=== PATIENT | female | born 1975 ===

== ENCOUNTER 2017-09-19 18:59 | Emergency (ER) | payer OTHER ==
[~2017-09-19] VITALS: Ht 160 cm; Wt 83.0 kg
[~2017-09-19 18:59] MED LIST: CELEBREX100 MG PO; SKELAXIN800 MG PO
== END 2017-09-19 22:24 | disposition home or self-care (01) ==
LOC: ER 18:59
DX: K29.70 Gastritis, unspecified, without bleeding (principal)

== ENCOUNTER 2021-11-07 17:43 | Emergency (ER) | payer OTHER ==
[~2021-11-07] VITALS: Ht 167.6 cm; Wt 87.5 kg
== END 2021-11-07 21:42 | disposition home or self-care (01) ==
LOC: ER 17:43
DX: K46.9 Unspecified abdominal hernia without obstruction or gangrene (principal)

== ENCOUNTER 2022-03-14 06:00 | Day surgery (SDC) | payer OTHER | END 2022-03-14 14:28 | disposition home or self-care (01) | LOC: CIR.AMB 06:00 | PROVIDERS: ATTEND Specialist | DX: K42.9 Umbilical hernia without obstruction or gangrene (principal); Z20.822 Contact with and (suspected) exposure to COVID-19; G43.909 Migraine, unspecified, not intractable, without status migrainosus; E66.9 Obesity, unspecified ==